=== PATIENT | male | born 1985 | race Caucasian/White ===

== ENCOUNTER 2018-12-20 13:51 | Inpatient (IN) | payer OTHER ==
[2018-12-20 16:26] VITALS: BMI 27.8
--- NOTE | 2018-12-20 18:39 | HP ---
COWS - Scale Resting Pulse: 1= [place] 81-100 Sweatin=Flushed/Facial Moisture Restless Observation: 1= Difficult to Sit Still Pupil Size: 1= Pupils >than Normal Bone or Joint Aches: 1= Mild Discomfort Runny Nose/ Eye Tearin= Nasal Congestion GI Upset > 30mins: 2= Nausea/Diarrhea Tremor Observation: 2= Slight Tremor Visible Yawning Observation: 0= None Anxiety or Irritability: 1=Feels Anxious/Irritable Goose Flesh Skin: 0=Smooth Skin COWS Score: 12 CIWA Score Nausea/Vomitin-Int. Nausea w/Dry Heave Muscle Tremors: 3 Anxiety: 1-Mildly Anxious Agitation: 2 Paroxysmal Sweats: 2 Orientation: 0-Oriented Tacttile Disturbances: 0-None Auditory Disturbances: 0-None Visual Disturbances: 0-None Headache: 2-Mild CIWA-Ar Total Score: 14 - Admission Criteria OASAS Guidelines: Admission for Medically Managed Detox: Requires at least one of the followin. CIWA greater than 12 2. Seizures within the past 24 hours 3. Delirium tremens within the past 24 hours 4. Hallucinations within the past 24 hours 5. Acute intervention needed for co occurring medical disorder 6. Acute intervention needed for co occurring psychiatric disorder 7. Severe withdrawal that cannot be handled at a lower level of care (continued vomiting, continued diarrhea, abnormal vital signs) requiring intravenous medication and/or fluids 8. Admission [facility] Chief Complaint: detox from alcohol and heroin Allergies/Adverse Reactions: Allergies Allergy/AdvReac Type Severity Reaction Status Date / Time No Known Allergies Allergy Verified 12/20/18 16:16 History of Present Illness: Mr. Siegel is a 33yo male with alcohol use disorder, heroin use disorder, depression, bipolar disorder, and hemochromatosis who presents for detox from alcohol and heroin. He was [facility] at the end of [facility] and is currently living in a sober house. He reports feeling anxious about moving in and began drinking and using heroin again. Pt reports detox x 6 and rehab x 8 in the past (last rehab is 2017). Pt reports drinking 12 pk beer over the last 1 -2 months with last use at 12:30am today. Pt reports hx of blackouts but denies seizures. Pt reports drinking for 20 years. Pt also sniffs 1 bundle of heroin daily for the last 2 months. He reports hx of OD x 1. Pt began using 5 years ago. Pt denies tobacco use. Pt reports nasal congestion, UREÑA, abdominal cramping, n/v, and tremors. Pt denies dizziness, chest pain, SOB, diarrhea, tingling, and hallucinations. 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 denies: Diarrhea : reports: No Symptoms Reported Musculoskeletal: denies: Back Pain Integumentary: reports: No Symptoms Reported Neuro: reports: Headache. denies: Dizziness Endocrine: reports: No Symptoms Reported Hematology: reports: No Symptoms Reported Psychiatric: reports: Judgement Intact, Mood/Affect Appropiate, Orientated x3 Patient History - Patient Medical History Hx Anemia: Yes (hemochromatosis) Hx Chronic Obstructive Pulmonary Disease (COPD): No Hx Hypertension: No Hx Seizures: No - Patient Surgical History Past Surgical History: No - Smoking Cessation Smoking history: Never smoked - Substances abused Alcohol Substance route: Oral Frequency: Daily Amount used: 1 - 12 pack (12 ounces) , 1/2 bottle elizabeth harvinder week Age of first use: 11 Date of last use: 12/20/18 Heroin Substance route: Inhalation Frequency: Daily Amount used: 1 bundle/day (10 bags) Age of first use: 28 Date of last use: 12/19/18 Family Disease History - Family Disease History Family Disease History: Other: Father (hx of substance abuse), Mother (hx of substance abuse) Admission Physical Exam BHS - Vital Signs Vital Signs: Vital Signs - 24 hr 12/20/18 16:15 Temperature 97.8 F Pulse Rate 94 H Respiratory 18 Rate Blood Pressure 120/75 - Physical General Appearance: Yes: No Apparent Distress HEENTM: Yes: Hearing grossly Normal, Normocephalic, ELICIA, [place] (area of alopecia base of skull) Respiratory: Yes: Lungs Clear, No Respiratory Distress Neck: Yes: Within Normal Limits Cardiology: Yes: Regular Rhythm, Regular Rate Abdominal: Yes: Normal Bowel Sounds, Non Tender Back: Yes: Within Normal Limits Musculoskeletal: Yes: full range of Motion Neurological: Yes: sap treasury consultant II-XII NML intact, Fully Oriented, Alert, Motor Strength 5/5, Normal Mood/Affect Integumentary: Yes: Within Normal Limits - Diagnostic (1) Alcohol use disorder Current Visit: Yes Status: Chronic (2) Heroin use disorder, mild Current Visit: Yes Status: Chronic (3) Hemochromatosis Current Visit: Yes Status: Chronic Qualifiers: Hemochromatosis type: unspecified Qualified Code(s): E83.119 - Hemochromatosis, unspecified (4) Depression Current Visit: Yes Status: Chronic Qualifiers: Depression Type: unspecified Qualified Code(s): F32.9 - Major depressive disorder, single episode, unspecified (5) Bipolar 1 disorder Current Visit: Yes Status: Chronic Cleared for Admission [facility] - Detox or Rehab [facility] Level of Care: Medically Managed Breathalyzer - Breathalyzer Breathalyzer: 0 Urine Drug Screen - Test Device Lot number: [id number] Expiration date: 09/29/20 - Control Is test valid?: Yes - Results Drug screen NEGATIVE: No Urine drug screen results: MOP-Opiates, OXY-Oxycodone Inpatient Rehab Admission - Rehab Decision to Admit Inpatient rehab admission?: No
[2018-12-20] MEDS ORDERED: METHADONE HCL 10 MG TABLET (FOR DETOX USE ONLY) PO ONE (18:48)
[2018-12-20] MEDS ORDERED: chlordiazePOXIDE HCL 25 MG CAPSULE PO PRN (18:48)
[2018-12-20] MEDS ORDERED: cloNIDine HCL 0.1 MG TABLET PO PRN (18:48)
[2018-12-20] MEDS ORDERED: chlordiazePOXIDE HCL 25 MG CAPSULE PO ONE (18:48)
[2018-12-20] MEDS ORDERED: MELATONIN 5 MG TABLETS PO PRN (19:13)
[2018-12-20] MEDS ORDERED: ACETAMINOPHEN 325 MG TABLET (FP) PO PRN ×2 (19:13)
[2018-12-20] MEDS ORDERED: METHOCARBAMOL 500 MG TABLET PO PRN (19:13)
[2018-12-20] MEDS ORDERED: BISMUTH SUBSALICYLATE 524 MG/30 ML UD PO PRN (19:13)
[2018-12-20] MEDS ORDERED: MAG HYDROX/AL HYDROX/SIMETH 30 ML UNIT-DOSE CUP PO PRN (19:13)
[2018-12-20] MEDS ORDERED: MAGNESIUM CITRATE 300 ML BOTTLE PO PRN (19:13)
[2018-12-20] MEDS ORDERED: MAGNESIUM HYDROX 2400MG/30ML ORAL SUSPENSION 30 ML CUP PO PRN (19:13)
[2018-12-20] MEDS ORDERED: MENTHOL/PHENOL 1 EACH UD MM PRN (19:13)
[2018-12-20] MEDS ORDERED: IBUPROFEN 400 MG TABLET (FP) PO PRN (19:13)
--- NOTE | 2018-12-20 19:59 | PN ---
Teaching Attending Note Name of Resident: Kiana Gan ATTENDING PHYSICIAN STATEMENT I saw and evaluated the patient. I reviewed the resident's note and discussed the case with the resident. I agree with the resident's findings and plan as documented. SUBJECTIVE: 33 yo with hemochromatosis with depression, here for AUD- and heroin detox OBJECTIVE: Vital Signs - 24 hr 12/20/18 16:15 Temperature 97.8 F Pulse Rate 94 H Respiratory 18 Rate Blood Pressure 120/75 alert and oriented tremulous ASSESSMENT AND PLAN: AUD/OUD: pt to start on librium and methadone detox protocols
[2018-12-20] MEDS: chlordiazePOXIDE HCL 25 MG CAPSULE PO SCH (22:07)
[2018-12-20] MEDS: THIAMINE HCL 100 MG TABLET (FP) PO SCH (22:07)
[2018-12-20] MEDS: FLUTICASONE PROP 0.05% 16 GM NASAL SPRAY NS SCH (22:09)
[2018-12-21] MEDS: chlordiazePOXIDE HCL 25 MG CAPSULE PO SCH ×4 (06:05→22:07)
[2018-12-21] MEDS ORDERED: METHADONE HCL 5 MG TABLET (FOR DETOX USE ONLY) ONE (09:36)
[2018-12-21] MEDS ORDERED: METHADONE HCL 10 MG TABLET (FOR DETOX USE ONLY) ONE (09:36)
[2018-12-21] MEDS ORDERED: METHADONE (DETOX) 20 MG, METHADONE (DETOX) 5 MG PO ONE (10:00)
[2018-12-21] MEDS: FLUTICASONE PROP 0.05% 16 GM NASAL SPRAY NS SCH (10:52)
[2018-12-21] MEDS: PRENATAL VITAMINS W/ FOLIC ACID TABLET (FP) PO SCH (10:53)
--- NOTE | 2018-12-21 11:37 | CONSULT ---
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 This is patient's first admission to detox at [facility]. Patient admitted to for alcohol and opiate dependence. Substance Abuse History: - Smoking Cessation. Smoking history: Never smoked. - Substances abused. Alcohol. Substance route: Oral. Frequency: Daily. Amount used: 1 - 12 pack (12 ounces) , 1/2 bottle elizabeth harvinder week. Age of first use: 11. Date of last use: 12/20/18. Heroin. Substance route: Inhalation. Frequency: Daily. Amount used: 1 bundle/day (10 bags). Age of first use: 28. Date of last use: 12/19/18 Medical History: Hemochromatosis Psychiatric History: Patient's first psychiatric contact occured at 28 years of age after he was admitted to [facility] secondary to a suicide attempt by overdose of aspirin. He was diagnosed with Bipolar disorder and treated with psychotropic medications. He reports additional psychiatric hospitalizations at [facility] and [facility]. Mr. Siegel reports history of mood dyregulation. He reports experiencing episiodes of insomnia, euorphia, excessive spending, and severe depression. [facility] and was treated with Wellbutrin 300mg XL + Risperdal 3mg + Irrigon 900mg HS + Cogentin 0.5mg BID. He reports receiving refills of his medication from his Internal medicine physician. At present, patient reports stable mood. Patient denies auditory/visual hallucinations, psychotic symptoms, and suicidal/homicidal ideation. Physical/Sexual Abuse/Trauma History: denies. Mental Status Exam - Mental Status Exam Alert and Oriented to: Time, Place, Person Cognitive Function: Good Patient Appearance: Well Groomed Mood: Euthymic Affect: Mood Congruent Patient Behavior: Cooperative Speech Pattern: Appropriate Voice Loudness: Moderately Soft/Quiet Thought Process: Goal Oriented Thought Disorder: Not Present Hallucinations: Denies Suicidal Ideation: Denies Homicidal Ideation: Denies Insight/Judgement: Poor Sleep: Poorly Appetite: Poor Muscle strength/Tone: Normal Gait/Station: Normal Psychiatric Findings - Problem List ([place] 1, 2,3) (1) Bipolar disorder Current Visit: Yes Status: Chronic (2) Alcohol use disorder Current Visit: Yes Status: Chronic (3) Heroin use disorder, mild Current Visit: Yes Status: Chronic - Initial Treatment Plan Initial Treatment Plan: Psychoeducation provided. Detoxification in progress. [facility] pharmacy contacted. Investor Relations Specialist able to speak to pharmacist. Patient received a prescription of Irrigon 900mg HS + Risperdal 2mg HS (reduced dose as per patient 's request in order to reduce sedation) + Cogentin 0.5mg BID for 30 days on 11/29. Patient received a two week prescription of wellbutrin 300mg XL on 11/28/18 and another 2 week prescription on 12/13. Will order risperdal 3mg + Cogentin 0.5mg BID + Irrigon 600mg HS (reduced dose until lithium labs are posted). BUN + Creatinine levels within normal limits. Irrigon level order for 12/21/18. Benefits and side effects discussed. Verbal consent given.
--- NOTE | 2018-12-21 11:41 | EKG ---
Test Reason : Blood Pressure : / mmHG Vent. Rate : 091 BPM Atrial Rate : 091 BPM P-R Int : 156 ms QRS Dur : 102 ms QT Int : 360 ms P-R-T Axes : 067 039 037 degrees QTc Int : 442 ms NORMAL SINUS RHYTHM NORMAL ECG NO PREVIOUS ECGS AVAILABLE Confirmed by NITISH BOSS, LISA ([id number]) on 12/21/2018 11:41:32 AM Referred By: LARS VANN Confirmed By:LISA TALBERT MD
[2018-12-21 12:22] LABS: ALBUMIN 3.7 g/dl (3.4-5.0); BILIRUBIN,TOTAL 0.6 mg/dL (0.2-1); CALCIUM 8.8 mg/dL (8.5-10.1); CREATININE 1.1 mg/dL (0.55-1.3); POTASSIUM 3.6 mmol/L (3.5-5.1); TOT PROT 6.3 g/dl (6.4-8.2)
[2018-12-21 13:28] LABS: HEMATOCRIT 41.8 % (35.4-49); HEMOGLOBIN 14.5 GM/dL (11.7-16.9); MCH 32.4 pg (25.7-33.7); MCHC 34.7 g/dl (32.0-35.9); MEAN CELL VOLUME 93.3 fl (80-96); MEAN PLT VOLUME 8.4 fl (7.5-11.1); PLATELET COUNT 233 K/MM3 (134-434); RBC 4.48 M/mm3 (4.00-5.60); RDW 13.5 % (11.9-15.9); WHITE BLOOD COUNT 6.8 K/mm3 (4.0-10.0)
--- NOTE | 2018-12-21 14:15 | PN ---
S CIWA - CIWA Score Nausea/Vomitin-Mild Nausea/No Vomiting Muscle Tremors: 4-Moderate,w/Arms Extend Anxiety: 3 Agitation: 2 Paroxysmal Sweats: 1-Minimal Palms Moist Orientation: 0-Oriented Tacttile Disturbances: 0-None Auditory Disturbances: 0-None Visual Disturbances: 0-None Headache: 0-None Present CIWA-Ar Total Score: 11 S COWS - Scale Resting Pulse: 1= [place] 81-100 Sweatin= Chills/Flushing Restless Observation: 0= Sits Still Pupil Size: 0= Normal to Room Light Bone or Joint Aches: 1= Mild Discomfort Runny Nose/ Eye Tearin= Nasal Congestion GI Upset > 30mins: 2= Nausea/Diarrhea Tremor Observation of Outstretched Hands: 2= Slight Tremor Visible Yawning Observation: 1= 1-2x During Session Anxiety or Irritability: 2=Irritable/Anxious Goose Flesh Skin: 0=Smooth Skin COWS Score: 11 S Progress Note (SOAP) Subjective: 33 years old male admitted on 12/20/18 for alcohol and opiate withdrawal sx management doing well with libirum and methadone detox regimen seen by psychiatrist begin lithium treatment for bipolar Objective: 12/21/18 14:18 Vital Signs Temperature 96.7 F L 12/21/18 13:02 Pulse Rate 84 12/21/18 13:02 Respiratory Rate 18 12/21/18 13:02 Blood Pressure 113/81 12/21/18 13:02 O2 Sat by Pulse Oximetry (%) Laboratory Last Values WBC 6.8 K/mm3 (4.0-10.0) 12/21/18 07:30 RBC 4.48 M/mm3 (4.00-5.60) 12/21/18 07:30 Hgb 14.5 GM/dL (11.7-16.9) 12/21/18 07:30 Hct 41.8 % (35.4-49) 12/21/18 07:30 MCV 93.3 fl (80-96) 12/21/18 07:30 MCH 32.4 pg (25.7-33.7) 12/21/18 07:30 MCHC 34.7 g/dl (32.0-35.9) 12/21/18 07:30 RDW 13.5 % (11.9-15.9) 12/21/18 07:30 Plt Count 233 K/MM3 (134-434) 12/21/18 07:30 MPV 8.4 fl (7.5-11.1) 12/21/18 07:30 Sodium 142 mmol/L (136-145) 12/21/18 07:30 Potassium 3.6 mmol/L (3.5-5.1) 12/21/18 07:30 Chloride 102 mmol/L (98-107) 12/21/18 07:30 Carbon Dioxide 31 mmol/L (21-32) 12/21/18 07:30 Anion Gap 9 MMOL/L (8-16) 12/21/18 07:30 BUN 12.0 mg/dL (7-18) 12/21/18 07:30 Creatinine 1.1 mg/dL (0.55-1.3) 12/21/18 07:30 Est GFR (CKD-EPI)AfAm 100.27 12/21/18 07:30 Est GFR (CKD-EPI)NonAf 86.51 12/21/18 07:30 Random Glucose 80 mg/dL (74-106) 12/21/18 07:30 Calcium 8.8 mg/dL (8.5-10.1) 12/21/18 07:30 Total Bilirubin 0.6 mg/dL (0.2-1) 12/21/18 07:30 AST 21 U/L (15-37) 12/21/18 07:30 ALT 49 U/L (13-61) 12/21/18 07:30 Alkaline Phosphatase 72 U/L (45-117) 12/21/18 07:30 Total Protein 6.3 g/dl (6.4-8.2) L 12/21/18 07:30 Albumin 3.7 g/dl (3.4-5.0) 12/21/18 07:30 lab noted Assessment: 12/21/18 14:19 alcohol and opiate withdrawal sx alert oriented x [address] discuss medication assisted treatment program strong recommend the patient adherence to lithium treatment for bipolar Plan: continue librium and methadone detox regimen
[2018-12-21] MEDS ORDERED: risperiDONE 3 MG TABLET PO SCH (22:00)
[2018-12-21] MEDS: THIAMINE HCL 100 MG TABLET (FP) PO SCH (22:06)
[2018-12-21] MEDS: risperiDONE 2 MG TABLET PO SCH (22:06)
[2018-12-21] MEDS: LITHIUM CARBONATE 300 MG CAPSULE (FP) PO SCH (22:06)
[2018-12-21] MEDS: BENZTROPINE MESYLATE 1 MG TABLET (FP) PO SCH (22:07)
[2018-12-22] MEDS: chlordiazePOXIDE HCL 25 MG CAPSULE PO SCH ×4 (05:35→22:56)
[2018-12-22] MEDS ORDERED: METHADONE HCL 10 MG TABLET (FOR DETOX USE ONLY) PO ONE (10:00)
[2018-12-22] MEDS: PRENATAL VITAMINS W/ FOLIC ACID TABLET (FP) PO SCH (10:29)
[2018-12-22] MEDS: BENZTROPINE MESYLATE 1 MG TABLET (FP) PO SCH ×2 (10:29→22:55)
[2018-12-22] MEDS ORDERED: NICOTINE POLACRILEX 2 MG GUM BUC PRN (10:50)
[2018-12-22] MEDS: FLUTICASONE PROP 0.05% 16 GM NASAL SPRAY NS SCH (15:10)
--- NOTE | 2018-12-22 16:34 | PN ---
[facility] CIWA - CIWA Score Nausea/Vomitin-No Nausea/No Vomiting Muscle Tremors: None Anxiety: 4-Mod. Anxious/Guarded Agitation: 3 Paroxysmal Sweats: 3 Orientation: 0-Oriented Tacttile Disturbances: 2-Mild Itch/Numbness/Burn Auditory Disturbances: 0-None Visual Disturbances: 1-Very Mild Sensitivity Headache: 0-None Present CIWA-Ar Total Score: 13 S COWS - Scale Resting Pulse: 1= [place] 81-100 Sweatin= Chills/Flushing Restless Observation: 1= Difficult to Sit Still Pupil Size: 0= Normal to Room Light Bone or Joint Aches: 1= Mild Discomfort Runny Nose/ Eye Tearin= None GI Upset > 30mins: 0= None Tremor Observation of Outstretched Hands: 0= None Yawning Observation: 1= 1-2x During Session Anxiety or Irritability: 2=Irritable/Anxious Goose Flesh Skin: 3=Piloerection COWS Score: 10 S Progress Note (SOAP) Subjective: Fatigue, Anxious, Interrupted Sleep, Body Aches. Objective: PATIENT A & O X 3, OBSERVED AMBULATING ON UNIT UNASSISTED. IN NO ACUTE DISTRESS. 12/22/18 16:37 Vital Signs Temperature 97.1 F L 12/22/18 14:13 Pulse Rate 98 H 12/22/18 14:13 Respiratory Rate 20 12/22/18 14:13 Blood Pressure 133/81 12/22/18 14:13 O2 Sat by Pulse Oximetry (%) Laboratory Tests 12/21/18 12/21/18 12/21/18 07:30 07:30 07:30 WBC 6.8 RBC 4.48 Hgb 14.5 Hct 41.8 MCV 93.3 MCH 32.4 MCHC 34.7 RDW 13.5 Plt Count 233 MPV 8.4 Sodium 142 Potassium 3.6 Chloride 102 Carbon Dioxide 31 Anion Gap 9 BUN 12.0 Creatinine 1.1 Est GFR (CKD-EPI)AfAm 100.27 Est GFR (CKD-EPI)NonAf 86.51 Random Glucose 80 Calcium 8.8 Total Bilirubin 0.6 AST 21 ALT 49 Alkaline Phosphatase 72 Total Protein 6.3 L Albumin 3.7 [place] RPR Titer Nonreactive 12/21/18 12:20 WBC RBC Hgb Hct MCV MCH MCHC RDW Plt Count MPV Sodium Potassium Chloride Carbon Dioxide Anion Gap BUN Creatinine Est GFR (CKD-EPI)AfAm Est GFR (CKD-EPI)NonAf Random Glucose Calcium Total Bilirubin AST ALT Alkaline Phosphatase Total Protein Albumin [place] 0.3 L RPR Titer LABS NOTED. RESULTS OF DETOX ADMISSION QFT /TB TEST PENDING. 12/22/18 16:38 Assessment: 12/22/18 16:38 WITHDRAWAL SYMPTOMS. Plan: CONTINUE DETOX.
--- NOTE | 2018-12-22 17:45 | PN ---
[facility] Progress Note Note: Psychiatric nurse practitioner note: Patient is prescribed lithium 900mg HS + Risperdal 3mg from outside provider. Medications were reduced to lithium 600mg + Risperdal 2mg due to risk of oversedation. Statistical Developer approached patient this afternoon concerning increasing the lithium to 900mg and risperdal 3mg. Patient refused. Stated he preferred the doses remain the same as he felt tired this morning. [place] level 0.3mg. Observation.
[2018-12-22] MEDS: risperiDONE 2 MG TABLET PO SCH (22:40)
[2018-12-22] MEDS: THIAMINE HCL 100 MG TABLET (FP) PO SCH (22:54)
[2018-12-22] MEDS: LITHIUM CARBONATE 300 MG CAPSULE (FP) PO SCH (22:56)
[2018-12-23] MEDS ORDERED: chlordiazePOXIDE HCL 10 MG CAPSULE PO PRN
[2018-12-23] MEDS: chlordiazePOXIDE HCL 10 MG CAPSULE PO SCH ×4 (05:47→22:39)
[2018-12-23] MEDS ORDERED: METHADONE (DETOX) 10 MG, METHADONE (DETOX) 5 MG PO ONE (10:00)
[2018-12-23] MEDS: FLUTICASONE PROP 0.05% 16 GM NASAL SPRAY NS SCH (10:33)
[2018-12-23] MEDS: PRENATAL VITAMINS W/ FOLIC ACID TABLET (FP) PO SCH (10:33)
[2018-12-23] MEDS: BENZTROPINE MESYLATE 1 MG TABLET (FP) PO SCH ×2 (10:34→22:39)
[2018-12-23] MEDS ORDERED: METHADONE HCL 10 MG TABLET (FOR DETOX USE ONLY) ONE (10:35)
[2018-12-23] MEDS ORDERED: METHADONE HCL 5 MG TABLET (FOR DETOX USE ONLY) ONE (10:35)
--- NOTE | 2018-12-23 15:31 | PN ---
S CIWA - CIWA Score Nausea/Vomitin-No Nausea/No Vomiting Muscle Tremors: None Anxiety: 4-Mod. Anxious/Guarded Agitation: 2 Paroxysmal Sweats: No Perspiration Orientation: 2-Disoriented Date<2 days Tacttile Disturbances: 0-None Auditory Disturbances: 0-None Visual Disturbances: 2-Mild Sensitivity Headache: 0-None Present CIWA-Ar Total Score: 10 BHS COWS - Scale Resting Pulse: 0= [place] 80 or Below Sweatin= No chills or Flushing Restless Observation: 1= Difficult to Sit Still Pupil Size: 0= Normal to Room Light Bone or Joint Aches: 2= Severe Diffuse Aches Runny Nose/ Eye Tearin= None GI Upset > 30mins: 0= None Tremor Observation of Outstretched Hands: 0= None Yawning Observation: 2= >3x During Session Anxiety or Irritability: 2=Irritable/Anxious Goose Flesh Skin: 3=Piloerection COWS Score: 10 BHS Progress Note (SOAP) Subjective: Fatigue, Interrupted Sleep, Anxious, Body Aches. Objective: PATIENT A & O X 2 (UNCERTAIN ABOUT CURRENT DAY / DATE). PATIENT OBSERVED AMBULATING ON UNIT UNASSISTED. IN NO ACUTE DISTRESS. 12/23/18 15:30 Vital Signs Temperature 98.1 F 12/23/18 13:01 Pulse Rate 72 12/23/18 13:01 Respiratory Rate 18 12/23/18 13:01 Blood Pressure 103/67 12/23/18 13:01 O2 Sat by Pulse Oximetry (%) Laboratory Tests 12/21/18 12/21/18 12/21/18 07:30 07:30 07:30 WBC 6.8 RBC 4.48 Hgb 14.5 Hct 41.8 MCV 93.3 MCH 32.4 MCHC 34.7 RDW 13.5 Plt Count 233 MPV 8.4 Sodium 142 Potassium 3.6 Chloride 102 Carbon Dioxide 31 Anion Gap 9 BUN 12.0 Creatinine 1.1 Est GFR (CKD-EPI)AfAm 100.27 Est GFR (CKD-EPI)NonAf 86.51 Random Glucose 80 Calcium 8.8 Total Bilirubin 0.6 AST 21 ALT 49 Alkaline Phosphatase 72 Total Protein 6.3 L Albumin 3.7 [place] RPR Titer Nonreactive 12/21/18 12:20 WBC RBC Hgb Hct MCV MCH MCHC RDW Plt Count MPV Sodium Potassium Chloride Carbon Dioxide Anion Gap BUN Creatinine Est GFR (CKD-EPI)AfAm Est GFR (CKD-EPI)NonAf Random Glucose Calcium Total Bilirubin AST ALT Alkaline Phosphatase Total Protein Albumin [place] 0.3 L RPR Titer LABS NOTED. RESULTS OF DETOX ADMISSION QFT /TB TEST PENDING. 12/23/18 15:31 Assessment: 12/23/18 15:31 WITHDRAWAL SYMPTOMS. Plan: CONTINUE DETOX. INCREASE DAILY PO WATER INTAKE.
[2018-12-23] MEDS: THIAMINE HCL 100 MG TABLET (FP) PO SCH (22:39)
[2018-12-23] MEDS: LITHIUM CARBONATE 300 MG CAPSULE (FP) PO SCH (22:39)
[2018-12-23] MEDS: risperiDONE 2 MG TABLET PO SCH (22:39)
[2018-12-24] MEDS: chlordiazePOXIDE HCL 10 MG CAPSULE PO SCH ×2 (05:48→17:36)
[2018-12-24] MEDS ORDERED: METHADONE HCL 10 MG TABLET (FOR DETOX USE ONLY) PO ONE (10:00)
[2018-12-24] MEDS: PRENATAL VITAMINS W/ FOLIC ACID TABLET (FP) PO SCH (10:23)
[2018-12-24] MEDS: FLUTICASONE PROP 0.05% 16 GM NASAL SPRAY NS SCH (10:23)
[2018-12-24] MEDS: BENZTROPINE MESYLATE 1 MG TABLET (FP) PO SCH ×2 (10:23→22:06)
--- NOTE | 2018-12-24 12:34 | PN ---
[facility] CIWA - CIWA Score Nausea/Vomitin-No Nausea/No Vomiting Muscle Tremors: 2 Anxiety: 2 Agitation: 2 Paroxysmal Sweats: 1-Minimal Palms Moist Orientation: 0-Oriented Tacttile Disturbances: 0-None Auditory Disturbances: 0-None Visual Disturbances: 0-None Headache: 0-None Present CIWA-Ar Total Score: 7 BHS COWS - Scale Resting Pulse: 1= [place] 81-100 Sweatin= Chills/Flushing Restless Observation: 0= Sits Still Pupil Size: 0= Normal to Room Light Bone or Joint Aches: 1= Mild Discomfort Runny Nose/ Eye Tearin= None GI Upset > 30mins: 1= Stomach Cramp Tremor Observation of Outstretched Hands: 1= Tremor [place], Not Seen Yawning Observation: 1= 1-2x During Session Anxiety or Irritability: 1=Feels Anxious/Irritable Goose Flesh Skin: 0=Smooth Skin COWS Score: 7 S Progress Note (SOAP) Subjective: 33 years old male admitted on 12/20/18 for acute alcohol benzo and opiate withdrawal sx management doing well with libirum and methadone detox regimen reporting anxious about discharge tomorrow that he prefers [facility] inpatient rehab discuss medication assisted treatment program can begin while in rehab Objective: 12/24/18 12:35 Vital Signs Temperature 97.5 F L 12/24/18 09:26 Pulse Rate 104 H 12/24/18 09:26 Respiratory Rate 20 12/24/18 09:26 Blood Pressure 126/86 12/24/18 09:26 O2 Sat by Pulse Oximetry (%) Laboratory Last Values WBC 6.8 K/mm3 (4.0-10.0) 12/21/18 07:30 RBC 4.48 M/mm3 (4.00-5.60) 12/21/18 07:30 Hgb 14.5 GM/dL (11.7-16.9) 12/21/18 07:30 Hct 41.8 % (35.4-49) 12/21/18 07:30 MCV 93.3 fl (80-96) 12/21/18 07:30 MCH 32.4 pg (25.7-33.7) 12/21/18 07:30 MCHC 34.7 g/dl (32.0-35.9) 12/21/18 07:30 RDW 13.5 % (11.9-15.9) 12/21/18 07:30 Plt Count 233 K/MM3 (134-434) 12/21/18 07:30 MPV 8.4 fl (7.5-11.1) 12/21/18 07:30 Sodium 142 mmol/L (136-145) 12/21/18 07:30 Potassium 3.6 mmol/L (3.5-5.1) 12/21/18 07:30 Chloride 102 mmol/L (98-107) 12/21/18 07:30 Carbon Dioxide 31 mmol/L (21-32) 12/21/18 07:30 Anion Gap 9 MMOL/L (8-16) 12/21/18 07:30 BUN 12.0 mg/dL (7-18) 12/21/18 07:30 Creatinine 1.1 mg/dL (0.55-1.3) 12/21/18 07:30 Est GFR (CKD-EPI)AfAm 100.27 12/21/18 07:30 Est GFR (CKD-EPI)NonAf 86.51 12/21/18 07:30 Random Glucose 80 mg/dL (74-106) 12/21/18 07:30 Calcium 8.8 mg/dL (8.5-10.1) 12/21/18 07:30 Total Bilirubin 0.6 mg/dL (0.2-1) 12/21/18 07:30 AST 21 U/L (15-37) 12/21/18 07:30 ALT 49 U/L (13-61) 12/21/18 07:30 Alkaline Phosphatase 72 U/L (45-117) 12/21/18 07:30 Total Protein 6.3 g/dl (6.4-8.2) L 12/21/18 07:30 Albumin 3.7 g/dl (3.4-5.0) 12/21/18 07:30 Natalia 0.3 MEQ/L (0.6-1.2) L 12/21/18 12:20 RPR Titer Nonreactive (NONREACTIVE) 12/21/18 07:30 lab noted ambulating on hallway anxious about leaving detox emotional assurance given Assessment: 12/24/18 12:36 alcohol benzo opiate withdrawal sx Plan: continue librium and methadone detox regimen
[2018-12-24] MEDS: hydrOXYzine PAMOATE 25 MG CAPSULE (FP) PO PRN ×2 (13:19→22:05)
[2018-12-24] MEDS: LITHIUM CARBONATE 300 MG CAPSULE (FP) PO SCH (22:05)
[2018-12-24] MEDS: THIAMINE HCL 100 MG TABLET (FP) PO SCH (22:06)
[2018-12-24] MEDS: risperiDONE 2 MG TABLET PO SCH (22:06)
[2018-12-25] MEDS ORDERED: chlordiazePOXIDE HCL 10 MG CAPSULE PO ONE (05:00)
[2018-12-25] MEDS ORDERED: METHADONE HCL 5 MG TABLET (FOR DETOX USE ONLY) PO ONE (06:00)
[2018-12-25] MEDS: PRENATAL VITAMINS W/ FOLIC ACID TABLET (FP) PO SCH (10:47)
[2018-12-25] MEDS: FLUTICASONE PROP 0.05% 16 GM NASAL SPRAY NS SCH (10:48)
[2018-12-25] MEDS: BENZTROPINE MESYLATE 1 MG TABLET (FP) PO SCH (10:48)
--- NOTE | 2018-12-25 14:17 | PN ---
Addendum entered and electronically signed by Uri Hollis, RESIDENT 12/25/18 16: 18: Spoke with nurse, patient sleeping. stable right now. Continue to monitor patient. Pending psyche evaluation. Original Note: [facility] Progress Note (SOAP) Subjective: Patient is a 33yo male with alcohol use disorder, heroin use disorder, depression, bipolar disorder, presenting for heroin and alcohol detox. Patient completed detox today but has been reported to have worsening confusion since last night. Patient denies symptoms. says he feels good and wants to go to [place]. He did not want me to examine him because he says many people have been coming in to evaluate him. Unable to examine. He is A/o x 3 but appears confused. He put coffee on his bed and started wiping the bed with it. When asked what he is doing, he said he is cleaning his bed. Patient was also walking to different rooms and says they are his rooms. Recommendations: Psychiatry consult to re-evaluate patient. CMP repeat Vitals continue monitoring patient. consider transfer to ER if patient if confusion persists and no further recommendations from Psychiatry Plan to start rehab tomorrow per Nurse
--- NOTE | 2018-12-25 16:14 | DS ---
[facility] Detox Discharge Summary Admission Date: 12/20/18 Discharge Date: 12/25/18 - History Present History: Alcohol Dependence, Opioid Dependence, Sedative Dependence Additional Comments: 33 years old male admitted on 12/20/18 for alcohol benzo opiate withdrawal sx management doing well with libirum and methadone detox regimen upon discharge date patient became confused and disoriented to time place and person sudden changing of mental status that the patient going to many different rooms as "this is my room" slow speech no drooling hands squeeze equal strength ambulating steady gait information provided to ER Dr Pope to improve opportunity for consultation Dr Hollis recommend psychiatrist evaluation Dr Echols agrees to evaluate the patient proposition: patient may return to rehab 3W when medically cleared nurse informed regarding ER report to Dr Pope Pertinent Past History: psychiatrist recommend one on one for safety and reevaluate tomorrow - Physical Exam Results Vital Signs: Vital Signs Temperature 96.6 F L 12/25/18 13:43 Pulse Rate 97 H 12/25/18 13:43 Respiratory Rate 20 12/25/18 13:43 Blood Pressure 136/78 12/25/18 13:43 O2 Sat by Pulse Oximetry (%) Pertinent Admission Physical Exam Findings: alcohol benzo opiate withdrawal sx Laboratory Last Values WBC 6.8 K/mm3 (4.0-10.0) 12/21/18 07:30 RBC 4.48 M/mm3 (4.00-5.60) 12/21/18 07:30 Hgb 14.5 GM/dL (11.7-16.9) 12/21/18 07:30 Hct 41.8 % (35.4-49) 12/21/18 07:30 MCV 93.3 fl (80-96) 12/21/18 07:30 MCH 32.4 pg (25.7-33.7) 12/21/18 07:30 MCHC 34.7 g/dl (32.0-35.9) 12/21/18 07:30 RDW 13.5 % (11.9-15.9) 12/21/18 07:30 Plt Count 233 K/MM3 (134-434) 12/21/18 07:30 MPV 8.4 fl (7.5-11.1) 12/21/18 07:30 Sodium 142 mmol/L (136-145) 12/21/18 07:30 Potassium 3.6 mmol/L (3.5-5.1) 12/21/18 07:30 Chloride 102 mmol/L (98-107) 12/21/18 07:30 Carbon Dioxide 31 mmol/L (21-32) 12/21/18 07:30 Anion Gap 9 MMOL/L (8-16) 12/21/18 07:30 BUN 12.0 mg/dL (7-18) 12/21/18 07:30 Creatinine 1.1 mg/dL (0.55-1.3) 12/21/18 07:30 Est GFR (CKD-EPI)AfAm 100.27 12/21/18 07:30 Est GFR (CKD-EPI)NonAf 86.51 12/21/18 07:30 Random Glucose 80 mg/dL (74-106) 12/21/18 07:30 Calcium 8.8 mg/dL (8.5-10.1) 12/21/18 07:30 Total Bilirubin 0.6 mg/dL (0.2-1) 12/21/18 07:30 AST 21 U/L (15-37) 12/21/18 07:30 ALT 49 U/L (13-61) 12/21/18 07:30 Alkaline Phosphatase 72 U/L (45-117) 12/21/18 07:30 Ammonia 16.70 umol/L (11-32) 12/25/18 11:00 Total Protein 6.3 g/dl (6.4-8.2) L 12/21/18 07:30 Albumin 3.7 g/dl (3.4-5.0) 12/21/18 07:30 [place] 0.3 MEQ/L (0.6-1.2) L 12/21/18 12:20 RPR Titer Nonreactive (NONREACTIVE) 12/21/18 07:30 lab noted lithium serum level ordered - Treatment Hospital Course: Detox Protocol Followed, Detoxed Safely, Responded well, Rehab Referral Accepted Patient has Accepted a Re[facility] Referral to: [facility] - Medication Discharge Medications: Ambulatory Orders Fluticasone Prop 0.05% Nasal [Flonase -] 1 - 2 spray NS BID #1 spray.pump Loratadine [Claritin] 10 mg PO DAILY #30 tablet 11/24/18 Benztropine Mesylate [Cogentin -] 1 mg PO BID 12/20/18 Bupropion HCl [Wellbutrin Xl] 300 mg PO DAILY 12/20/18 [place] Carbonate [Eskalith -] 900 mg PO HS 12/20/18 Risperidone [Risperdal] 4 mg PO HS 12/20/18 Risperidone [Risperdal] 3 mg PO HS 12/21/18 - Diagnosis (1) Sedative, hypnotic or anxiolytic dependence, uncomplicated Current Visit: Yes Status: Acute (2) Alcohol use disorder Current Visit: Yes Status: Acute (3) Bipolar disorder Current Visit: Yes Status: Suspected Qualifiers: Current bipolar episode type: mixed Current episode severity: unspecified (4) Heroin use disorder, mild Current Visit: Yes Status: Acute (5) Altered mental status Current Visit: Yes Status: Acute Qualifiers: Altered mental status type: disorientation Qualified Code(s): R41.0 - Disorientation, unspecified - AMA Did Patient Leave Against Medical Advice: No
--- NOTE | 2018-12-25 16:33 | PN ---
[facility] Progress Note Note: Psychiatry Attending's note : Called to re-assess this patient. Reason for re-consult : mental confusion. Chart reviewed. Labs seen. Ammonia normal. Noted lithium level = 0.3 (sub-therapeutic). Medications verified with [id number]. Spoke to pharmacist (refills on 11/29/18). Visited patient at bedside. Found asleep. Resting comfortably. Witnessed by nurse. Present at bedside with this inspector automatic typewriter. Examination deferred. In the meantime : risperdal + cogentin Temporarily discontinued. Discussed with nursing staff.
[2018-12-25 18:03] LABS: ALBUMIN 3.8 g/dl (3.4-5.0); BILIRUBIN,TOTAL 1.5 mg/dL (0.2-1); BLOOD UREA NITROGEN 10.9 mg/dL (7-18); CALCIUM 9.1 mg/dL (8.5-10.1); CREATININE 1.1 mg/dL (0.55-1.3); POTASSIUM 4.1 mmol/L (3.5-5.1); TOT PROT 6.6 g/dl (6.4-8.2)
--- NOTE | 2018-12-25 20:33 | PN ---
[facility] Progress Note Note: Psychiatry Attending's note (follow-up) : Contact made with [facility]. Informed that patient is now moved to room # 377. As a safety precaution (being closer to station). As per nurse, patient is wandering around. Requesting discharge AMA. Escalating on the unit. Transition to [facility] was deferred. Due to altered mental status (as per nurse practitioner). Patient CANNOT be allowed to leave premises with such a mental state. Mr Siegel will be at risk of posing a danger to self or others. Intervention : Initiate Constant Observation (1:1) for safety. Contact Security personnel at [facility]. Medical follow-up. Discussed with nursing supervisor kosher dietary service on duty. Also discussed with Mia Adams nurse assigned to the patient.
--- NOTE | 2018-12-25 20:45 | PN ---
[facility] Progress Note Note: Psychiatric nurse practitioner note: Call received by RN stating patient was wandering into other people's room and has requested to leave AMA. Dr. Echols able to speak to nursing staff on 3N before medical underwriter was able to contact the unit. . As per nursing staff, Dr. Echols recommended patient be placed on 1:1 for safety. Due to patient's altered mental status (as per nursing staff) patient should not be allowed to leave facility. If patient were to be transferred to [facility] for Medical follow up, patient would have to go on a 1:1 observation. Dry Cleaner Hand in agreement with Dr. Echols plan.
--- NOTE | 2018-12-25 21:08 | PN ---
[facility] Progress Note Note: Patient was seen and evaluated in bed. He is very confused and reports dizziness and hearing voices. He denies suicidal ideation at this time. 1:1 constant observation for safety initiated. Nursing laboratory supervisor, Mr. Guillen notified Vital Signs Temperature 97 F L 12/25/18 20:57 Pulse Rate 113 H 12/25/18 20:57 Respiratory Rate 18 12/25/18 20:57 Blood Pressure 137/80 12/25/18 20:57 O2 Sat by Pulse Oximetry (%) Action: 1:1 constant observation for safety initiated EKG stat order
[2018-12-25] MEDS: LITHIUM CARBONATE 300 MG CAPSULE (FP) PO SCH (22:30)
[2018-12-26 06:32] VITALS: PULSE 100
[2018-12-26 09:11] VITALS: BP 118/71; TEMP 97.4
--- NOTE | 2018-12-26 09:39 | EKG ---
Test Reason : Blood Pressure : / mmHG Vent. Rate : 105 BPM Atrial Rate : 105 BPM P-R Int : 154 ms QRS Dur : 086 ms QT Int : 326 ms P-R-T Axes : 065 030 040 degrees QTc Int : 430 ms SINUS TACHYCARDIA OTHERWISE NORMAL ECG WHEN COMPARED WITH ECG OF 20-DEC-2018 19:48, NO SIGNIFICANT CHANGE WAS FOUND Confirmed by Ignacio Llanos MD ([id number]) on 12/26/2018 9:39:01 AM Referred By: Confirmed By:Ignacio Llanos MD
--- NOTE | 2018-12-26 10:44 | PN ---
<BernardSunday - Last Filed: 12/26/18 11:10> Psychiatric Progress Note Vital Signs: Vital Signs Period Temp Pulse Resp BP Sys/Nelson Pulse Ox Last 24 Hr 96.6 F-99 F 97-113 16-20 113-137/71-86 Date of Session: 12/26/18 Chief Complaint:: " re evaluation of 1:1 for safety. HPI: Patient admitted to for alcohol dependence comorbid bipolar disorder. ROS: Patient presents as fatigue but is alert and oriented X3. Current Medications: Active Medications Generic Name Dose Route Start Last Admin Trade Name Freq PRN Reason Stop Dose Admin Acetaminophen 650 mg 12/20/18 19:13 12/21/18 22:07 Tylenol - PO 650 mg Q6H PRN Administration PAIN LEVEL 4 - 6 Acetaminophen 650 mg 12/20/18 19:13 Tylenol - PO Q6H PRN FEVER Al Hydroxide/Mg Hydroxide 30 ml 12/20/18 19:13 Mylanta Oral Suspension - PO Q6H PRN DYSPEPSIA Bismuth Subsalicylate 524 mg 12/20/18 19:13 Pepto-Bismol - PO Q1H PRN DIARRHEA Fluticasone Propionate 2 spray 12/20/18 19:30 12/25/18 10:48 Flonase - NS 2 spray DAILY LUX Administration Hydroxyzine Pamoate 25 mg 12/20/18 19:13 12/24/18 22:05 Vistaril - PO 12/26/18 19:14 25 mg Q6H PRN Administration For Anxiety [place] Carbonate 600 mg 12/21/18 22:00 12/25/18 22:30 Eskalith - PO 600 mg HS LUX Administration Magnesium Citrate 300 ml 12/20/18 19:13 Citroma - PO Q48H PRN CONSTIPATION Magnesium Hydroxide 30 ml 12/20/18 19:13 Milk Of Magnesia - PO PRN PRN CONSTIPATION Methocarbamol 500 mg 12/20/18 19:13 Robaxin - PO 12/26/18 19:14 Q6H PRN MUSCLE SPASMS Nicotine Polacrilex 2 mg 12/22/18 10:50 12/24/18 10:25 Nicorette Gum - BUC 2 mg Q2H PRN Administration NICOTINE REPLACEMENT RX Medication(s) Change(s): Not at the moment. Current Side Effect: No Lab tests ordered: No Lab tests reviewed: Yes Provider note:: Patient placed on 1:1 yesterday evening after staff reported that patient was confused and wandering into different rooms. Risperdal 2mg + Cogentin 0.5mg BID + Wellbutrin 300mg was discontinued. Patient remained on lithium 600mg HS. Lithum level on 12/21 was 0.3. Production Hardener able to assess patient bedside this morning. Patient laying in bed awake, mildly fatigue, coherent, alert and oriented X3. Patient does not present with altered mental statues. No irritability noted. Patient denies auditory/visual hallucination, and suicidal/ homicidal ideation. Patient able to explain that he admitted himself to detox after relapsing on alcohol and heroin last week which is what he told film writer upon initial psychiatric consultation. Patient is currently motivated to return to the sober house but states that he needs to get in contact with them. Case discussed with Dr. Echols. Jamil d/c 1:1 observation. Nursing staff informed. Total face to face time:: 25 Mental Status Exam - Mental Status Exam Alert and Oriented to: Time, Place, Person Cognitive Function: Good Patient Appearance: Well Groomed Mood: Euthymic Affect: Mood Congruent Patient Behavior: Fatigued Speech Pattern: Appropriate Voice Loudness: Normal Thought Process: Goal Oriented Thought Disorder: Not Present Hallucinations: Denies Suicidal Ideation: Denies Homicidal Ideation: Denies Insight/Judgement: Fair Sleep: Fair Appetite: Fair Muscle strength/Tone: Normal Gait/Station: Normal Psychiatric Treatment Plan - Problem List (1) Bipolar disorder Current Visit: Yes Qualifiers: Current bipolar episode type: mixed Current episode severity: unspecified (2) Alcohol use disorder Current Visit: Yes (3) Heroin use disorder, mild Current Visit: Yes <Jaya Echols - Last Filed: 12/26/18 11:49> Psychiatric Progress Note Vital Signs: Vital Signs Period Temp Pulse Resp BP Sys/Nelson Pulse Ox Last 24 Hr 96.6 F-99 F 97-113 16-20 113-137/71-86 Current Medications: Active Medications Generic Name Dose Route Start Last Admin Trade Name Freq PRN Reason Stop Dose Admin Acetaminophen 650 mg 12/20/18 19:13 12/21/18 22:07 Tylenol - PO 650 mg Q6H PRN Administration PAIN LEVEL 4 - 6 Acetaminophen 650 mg 12/20/18 19:13 Tylenol - PO Q6H PRN FEVER Al Hydroxide/Mg Hydroxide 30 ml 12/20/18 19:13 Mylanta Oral Suspension - PO Q6H PRN DYSPEPSIA Bismuth Subsalicylate 524 mg 12/20/18 19:13 Pepto-Bismol - PO Q1H PRN DIARRHEA Fluticasone Propionate 2 spray 12/20/18 19:30 12/26/18 10:52 Flonase - NS 2 spray DAILY LUX Administration Hydroxyzine Pamoate 25 mg 12/20/18 19:13 12/24/18 22:05 Vistaril - PO 12/26/18 19:14 25 mg Q6H PRN Administration For Anxiety [place] Carbonate 600 mg 12/21/18 22:00 12/25/18 22:30 Eskalith - PO 600 mg HS LUX Administration Magnesium Citrate 300 ml 12/20/18 19:13 Citroma - PO Q48H PRN CONSTIPATION Magnesium Hydroxide 30 ml 12/20/18 19:13 Milk Of Magnesia - PO PRN PRN CONSTIPATION Methocarbamol 500 mg 12/20/18 19:13 Robaxin - PO 12/26/18 19:14 Q6H PRN MUSCLE SPASMS Nicotine Polacrilex 2 mg 12/22/18 10:50 12/24/18 10:25 Nicorette Gum - BUC 2 mg Q2H PRN Administration NICOTINE REPLACEMENT RX
[2018-12-26] MEDS: FLUTICASONE PROP 0.05% 16 GM NASAL SPRAY NS SCH (10:52)
--- NOTE | 2018-12-26 12:02 | PN ---
[facility] Progress Note Note: Psychiatry Attending's note (follow-up) : Chart reviewed. Case presented by slip cover sewer Juan Ramon Wagner. Patient interviewed. Medical students in attendance. Verbal consent obtained from patient (for student's participation). Mr Siegel is observed as ambulatory, well groomed and cooperative. Friendly and well-mannered. Clear-minded and goal-directed. Fully aware of his whereabouts. Alert, oriented to place and person. Partially oriented to time. Steady, normal gait. Accurate about month, year but not to exact date (believes today to be 12/23/18). Patient verbalizes a fair understanding of his recent cognitive difficulties + erratic behaviors. " I was high on drugs, drinking alcohol and extremely tired when I came to this program." Review of medications orders indicates a protocol of methadone + chlordiazepoxide. This examination attests to a clearing of sensorium concordant with completion of detoxification protocol. Mr Siegel reiterates his willingness to enlist in rehabilitation. Insists on staying on his current medications. Endorses favorable response to bupropion + risperdal + lithium + cogentin. Recently dispensed during his incarceration. Patient reports that he was released on 10/17/18 from long term (incarcerated for one year). Lives in a sober house in [place]. Expresses motivation for sobriety + satisfaction with his current housing arrangement. Gets along with other residents (self-report). Has shown a keen ability to make realistic plans, as evidenced by : - calling the sober supervisor hide house to inform staff of his plan to enter rehabilitation at [facility]. - ensuring that his bed remains secure in the sober house until he gets discharged from [facility]. - making certain that his goal for rehabilitation will not jeopardize his current housing privileges. - inquiring about the feasibility of referral to a local psychiatric OPD clinic (aftercare). - providing accurate information about his medications + longitudinal history of his current illness (bipolar Disorder). Current mental status is consistent with a patient in full command of his faculties, pleasant, conversant and future-oriented. Communicates with a coherent, fluent and goal-directed speech. Normal volume. Relevant. Mood is jovial. Affect : appropriate. Patient is receptive to motivational counseling. Exhibits adequate impulse control and good judgment. Partial insight. Well-rested. Good and reliable historian. Denies hallucinations in all sensory modalities. No delusion elicited. Eager to maintain wellness for future employment. Mr Siegel has consistently denies suicidal/homicidal ideation, intent or plan. Patient is now back to baseline mental status. Stable for [facility]. Plan : - No justification for special observation. One-to-one (1:1) constant observation is discontinued. - Resume wellbutrin Xl 300 mg po daily + lithium 600 mg po hs + risperdal 1 mg po bid + cogentin 0.5 mg po daily. - Side effects/benefits of this regimen : explained to patient. Mr Siegel is made aware of risk for renal dysfunction, abnormal involuntary movements, galactorrhea, gynecomastia, sexual dysfunction, dystonias, dyskinesias, akathisia, neuroleptic malignant syndrome, seizures, weight gain, anticholinergic issues (dry mouth, urinary hesitancy, blurred vision, constipation) and cardiovascular adverse events. Patient is in agreement with this plan of care. Verbal consent received by MD. - Repeat lithium level in two days. If still sub-therapeutic, will titrate lithium to 900 mg po hs (patient's reported usual dose). - Medical clearance (SOFÍA Florian) appreciated. - Stable for transfer to [facility] (rehabilitation unit). - Psychiatry-Liaison to be consulted as needed.
--- NOTE | 2018-12-26 12:32 | DS ---
[facility] Detox Discharge Summary Admission Date: 12/20/18 Discharge Date: 12/26/18 - History Present History: Alcohol Dependence, Opioid Dependence, Sedative Dependence Additional Comments: 33 years old male admitted on 12/20/18 for alcohol benzo and opiate withdrawal sx management doing well with librium and methadone detox regimen upon discharge date patient appeared confused going to other people' room with odd behavior such as using coffee to clean the bed and wrong date of seen by psychiatrist one on one for safety observation patient became alert oriented x 3 knowing that he was living in near [facility] x 2-3 months child welfare caseworker Mr. Gamble his phone number is in his cell with the property reporting that he dose not want to go to rehab yesterday but today he is ready for rehab answer questions appropriately speech clear and coherent steady gait denies headaches no dizziness no hallucinations - Physical Exam Results Vital Signs: Vital Signs Temperature 97.4 F L 12/26/18 09:09 Pulse Rate 100 H 12/26/18 09:09 Respiratory Rate 16 12/26/18 09:09 Blood Pressure 118/71 12/26/18 09:09 O2 Sat by Pulse Oximetry (%) Pertinent Admission Physical Exam Findings: alcohol benzo opiate withdrawal sx Laboratory Last Values WBC 6.8 K/mm3 (4.0-10.0) 12/21/18 07:30 RBC 4.48 M/mm3 (4.00-5.60) 12/21/18 07:30 Hgb 14.5 GM/dL (11.7-16.9) 12/21/18 07:30 Hct 41.8 % (35.4-49) 12/21/18 07:30 MCV 93.3 fl (80-96) 12/21/18 07:30 MCH 32.4 pg (25.7-33.7) 12/21/18 07:30 MCHC 34.7 g/dl (32.0-35.9) 12/21/18 07:30 RDW 13.5 % (11.9-15.9) 12/21/18 07:30 Plt Count 233 K/MM3 (134-434) 12/21/18 07:30 MPV 8.4 fl (7.5-11.1) 12/21/18 07:30 Sodium 140 mmol/L (136-145) 12/25/18 15:00 Potassium 4.1 mmol/L (3.5-5.1) 12/25/18 15:00 Chloride 100 mmol/L (98-107) 12/25/18 15:00 Carbon Dioxide 34 mmol/L (21-32) H 12/25/18 15:00 Anion Gap 6 MMOL/L (8-16) L 12/25/18 15:00 BUN 10.9 mg/dL (7-18) 12/25/18 15:00 Creatinine 1.1 mg/dL (0.55-1.3) 12/25/18 15:00 Est GFR (CKD-EPI)AfAm 100.27 12/25/18 15:00 Est GFR (CKD-EPI)NonAf 86.51 12/25/18 15:00 Random Glucose 122 mg/dL (74-106) H 12/25/18 15:00 Calcium 9.1 mg/dL (8.5-10.1) 12/25/18 15:00 Total Bilirubin 1.5 mg/dL (0.2-1) H 12/25/18 15:00 AST 17 U/L (15-37) 12/25/18 15:00 ALT 31 U/L (13-61) 12/25/18 15:00 Alkaline Phosphatase 69 U/L (45-117) 12/25/18 15:00 Ammonia 16.70 umol/L (11-32) 12/25/18 11:00 Total Protein 6.6 g/dl (6.4-8.2) 12/25/18 15:00 Albumin 3.8 g/dl (3.4-5.0) 12/25/18 15:00 [place] 0.3 MEQ/L (0.6-1.2) L 12/21/18 12:20 RPR Titer Nonreactive (NONREACTIVE) 12/21/18 07:30 TB (QFT) Incubation (.) 12/21/18 07:30 TB Test (QFT) Nil 0.07 IU/mL (.) 12/21/18 07:30 TB Test (QFT) Mitogen >10.00 IU/mL (.) 12/21/18 07:30 TB Test (QFT) Antigen 0.06 IU/mL (.) 12/21/18 07:30 TB Test (QFT) Negative (Negative) 12/21/18 07:30 TB Positive Criteria (.) 12/21/18 07:30 lab noted - Treatment Hospital Course: Detox Protocol Followed, Detoxed Safely, Responded well, Discharged Condition Good, Rehab Referral Accepted Patient has Accepted a Rehab Referral to: [facility] - Medication Discharge Medications: Ambulatory Orders Fluticasone Prop 0.05% Nasal [Flonase -] 1 - 2 spray NS BID #1 spray.pump Loratadine [Claritin] 10 mg PO DAILY #30 tablet 11/24/18 Benztropine Mesylate [Cogentin -] 1 mg PO BID 12/20/18 Bupropion HCl [Wellbutrin Xl] 300 mg PO HS 12/20/18 [place] Carbonate [Eskalith -] 600 mg PO HS 12/20/18 Risperidone [Risperdal] 4 mg PO HS 12/20/18 Risperidone [Risperdal] 3 mg PO HS 12/21/18 - Diagnosis (1) Sedative, hypnotic or anxiolytic dependence, uncomplicated Current Visit: Yes Status: Acute (2) Alcohol use disorder Current Visit: Yes Status: Acute (3) Bipolar disorder Current Visit: Yes Status: Suspected Qualifiers: Current bipolar episode type: mixed Current episode severity: unspecified (4) Heroin use disorder, mild Current Visit: Yes Status: Acute (5) Altered mental status Current Visit: Yes Status: Resolved Qualifiers: Altered mental status type: unspecified Qualified Code(s): R41.82 - Altered mental status, unspecified - AMA Did Patient Leave Against Medical Advice: No CIWA Score - CIWA Score Nausea/Vomitin-No Nausea/No Vomiting Muscle Tremors: 1-None Visible, but [place] Anxiety: 1-Mildly Anxious Agitation: 1-Slight > Activity Paroxysmal Sweats: 1-Minimal Palms Moist Orientation: 0-Oriented Tacttile Disturbances: 0-None Auditory Disturbances: 0-None Visual Disturbances: 0-None Headache: 0-None Present CIWA-Ar Total Score: 4 COWS (PN) - Opiate Withdrawal Resting Pulse: 1= WI 81-100 Sweatin= No chills or Flushing Restless Observation: 0= Sits Still Pupil Size: 0= Normal to Room Light Bone or Joint Aches: 1= Mild Discomfort Runny Nose/ Eye Tearin= Nasal Congestion GI Upset > 30mins: 1= Stomach Cramp Tremor Observation of Outstretched Hands: 0= None Yawning Observation: 0= None Anxiety or Irritability: 1=Feels Anxious/Irritable Goose Flesh Skin: 0=Smooth Skin COWS Score: 5
[2018-12-26] MEDS ORDERED: risperiDONE 0.5 MG TABLET (FP) PO SCH (22:00)
== END 2018-12-26 13:11 | disposition other institution (70) | DRG 773 ==
LOC: YASAS 13:51 → Y3N 19:38
PROVIDERS: ADMIT Surgery; ATTEND Surgery
PROC: HZ2ZZZZ Detoxification Services for Substance Abuse Treatment (ICD-10-PCS; principal; 2018-12-20)
DX: F11.23 Opioid dependence with withdrawal (principal); F10.230 Alcohol dependence with withdrawal, uncomplicated; F13.230 Sedative, hypnotic or anxiolytic dependence with withdrawal, uncomplicated; F31.60 Bipolar disorder, current episode mixed, unspecified; R41.82 Altered mental status, unspecified
CPT/HCPCS: 36415; 80053; 80178; 82140; 85027; 86480; 86593; 93005; 93010; J0735

== ENCOUNTER 2018-12-26 13:25 | Inpatient (IN) | payer OTHER ==
[2018-12-26] MEDS ORDERED: LOPERAMIDE HCL 2 MG CAPSULE PO PRN (15:22)
[2018-12-26] MEDS ORDERED: MAGNESIUM CITRATE 300 ML BOTTLE PO PRN (15:22)
[2018-12-26] MEDS ORDERED: MENTHOL/PHENOL 1 EACH UD MM PRN (15:22)
[2018-12-26] MEDS ORDERED: P-EPHED 60MG/TRIPROLIDI 2.5MG TABLET PO PRN (15:22)
[2018-12-26] MEDS ORDERED: MAG HYDROX/AL HYDROX/SIMETH 30 ML UNIT-DOSE CUP PO PRN (15:22)
[2018-12-26] MEDS ORDERED: IBUPROFEN 400 MG TABLET (FP) PO PRN (15:22)
[2018-12-26] MEDS ORDERED: ACETAMINOPHEN 325 MG TABLET (FP) PO PRN (15:22)
[2018-12-26] MEDS ORDERED: guaiFENesin 200 MG/10 ML 10 ML UNIT-DOSE CUPS PO PRN (15:22)
[2018-12-26] MEDS ORDERED: MAGNESIUM HYDROX 2400MG/30ML ORAL SUSPENSION 30 ML CUP PO PRN (15:22)
--- NOTE | 2018-12-26 15:22 | HP ---
[facility] Rehab Assess/Revision - Admission History Admitted to Rehab from: [facility] Date of Admission to Rehab: 12/25/18 - Findings Detox History & Physical reviewed: Yes Concur with findings: Yes Comments/Additional Findings: transferred from detox to rehab admission as per protocol Inpatient Rehab Admission - Rehab Decision to Admit Inpatient rehab admission?: Yes - Initial Determination Are CD services needed?: Yes Free of communicable disease: Yes Not in need of hospitalization: Yes - Rehab Admission Criteria Previous failed treatment: Yes Poor recovery environment: Yes Comorbidities: Yes Lacks judgement: No Patient is meeting Inpatient Rehab admission criteria:: Yes
[2018-12-26] MEDS: risperiDONE 0.5 MG TABLET (FP) PO SCH (20:59)
[2018-12-26] MEDS: THIAMINE HCL 100 MG TABLET (FP) PO SCH (20:59)
[2018-12-26] MEDS: LITHIUM CARBONATE 300 MG CAPSULE (FP) PO SCH (20:59)
[2018-12-26] MEDS: MELATONIN 5 MG TABLETS PO PRN (20:59)
[2018-12-27] MEDS: risperiDONE 0.5 MG TABLET (FP) PO SCH (10:27)
[2018-12-27] MEDS: PRENATAL VITAMINS W/ FOLIC ACID TABLET (FP) PO SCH (10:27)
[2018-12-27] MEDS ORDERED: NICOTINE POLACRILEX 2 MG GUM BUC ONE (10:36)
[2018-12-27] MEDS ORDERED: PNEUMOCOCCAL 23 VACCINE 0.5 ML VIAL IM ONE (12:00)
--- NOTE | 2018-12-27 13:36 | CONSULT ---
[facility] Psychiatric Consult - Data Date of interview: 12/27/18 Admission source: Transfer from [address] [place] [address]. Identifying data: First admission to [facility] for this 33 y/o male who completed detoxification at [address] [place] [address] and enrolled in rehabilitation for preservation of sobriety + management of co-morbidities (substance use disorder : alcohol/heroin + bipolar disorder). 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 Substance Abuse History: Discussed in this session. Confirmed by patient. Details in current [facility] report as folows : Smoking history: Never smoked. Substances abused. Alcohol. Substance route: Oral. Frequency: Daily. Amount used: 1 - 12 pack (12 ounces) , 1/2 bottle elizabeth harvinder week. Age of first use: 11. Date of last use: 12/20/18. Heroin. Substance route: Inhalation. Frequency: Daily. Amount used: 1 bundle/day (10 bags). Age of first use: 28. Date of last use: 12/19/18 Medical History: History of hemochromatosis. Psychiatric History: First contact with the mental health system occurred five years ago after a serious suicide attempt (overdose with 50 tablets of seroquel) . Precipitants : divorce and loss of custody of his daughter (left with child's mother). Patient was admitted to [facility] in [facility] (went to a medically-induced coma as per self-report). Mr Siegel got diagnosed with Bipolar Disorder. He endorses additional psychiatric hospitalizations at the [facility]. Patient admits to chronic non-adherence to [facility] care. He, however, re-enlisted in psychiatric care during his recent incarceration (served a one-year sentence; released in September 2018). Patient was reportedly managed on a regimen of wellbutrin XL 300 mg/day + risperdal 3 mg/hs + lithium 900 mg/hs + cogentin 0.5 mg/bid. His most recent refills were issued by his primary care physician. Physical/Sexual Abuse/Trauma History: Patient denies history of abuse. Additional Comment: Urine drug screen results: MOP-Opiates, OXY-Oxycodone. Noted. Mental Status Exam - Mental Status Exam Alert and Oriented to: Time, Place, Person Cognitive Function: Good Patient Appearance: Well Groomed Mood: Hopeful, Euthymic Affect: Appropriate, Normal Range Patient Behavior: Cooperative Speech Pattern: Clear, Appropriate Voice Loudness: Normal Thought Process: Goal Oriented Thought Disorder: Not Present Hallucinations: Denies Suicidal Ideation: Denies Homicidal Ideation: Denies Insight/Judgement: Fair Sleep: Well Appetite: Good Muscle strength/Tone: Normal Gait/Station: Normal Psychiatric Findings - Problem List ([place] 1, 2,3) (1) Alcohol use disorder Current Visit: Yes Status: Chronic (2) Heroin use disorder, mild Current Visit: Yes Status: Chronic (3) Bipolar disorder Current Visit: Yes Status: Chronic Qualifiers: Current bipolar episode type: mixed Current episode severity: unspecified Comment: By history. - Initial Treatment Plan Initial Treatment Plan: Continue psychoeducation. Support. Address patient's concern about housing issues (social work team to coordinate contact between patient and the management office at [facility]). AA/NA meetings. Relapse prevention teachings. Psychotherapy. Groups. Motivational counseling. [place] level (repeat) = 0.5 on 12/26/18. Will follow every five days. Resumed : wellbutrin XL 300 mg po daily + risperdal 1 mg po bid + cogentin 0.5 mg po bid + lithium 600 mg po hs. Side effects/benefits of each medication of this regimen : discussed with the patient. Mr Siegel continues to be in agreement with this plan of care. Gave verbal consent to MD. Lowery.
[2018-12-27] MEDS: BENZTROPINE MESYLATE 1 MG TABLET (FP) PO SCH (21:47)
[2018-12-27] MEDS: risperiDONE 1 MG TABLET (FP) PO SCH (21:47)
[2018-12-27] MEDS: LITHIUM CARBONATE 300 MG CAPSULE (FP) PO SCH (21:47)
[2018-12-27] MEDS: THIAMINE HCL 100 MG TABLET (FP) PO SCH (21:47)
[2018-12-27] MEDS: NICOTINE POLACRILEX 2 MG GUM BC PRN (21:48)
[2018-12-28] MEDS: BENZTROPINE MESYLATE 1 MG TABLET (FP) PO SCH ×2 (10:22→21:26)
[2018-12-28] MEDS: risperiDONE 1 MG TABLET (FP) PO SCH (10:23)
[2018-12-28] MEDS: PRENATAL VITAMINS W/ FOLIC ACID TABLET (FP) PO SCH (10:24)
--- NOTE | 2018-12-28 12:08 | PN ---
S Progress Note Note: Pt c/o left foot pain and "feeling of swelling". Reports pain when wiggling foot. Denies any previous truama to foot. Saw pt laying in bed. Foot Exam:left foot slight limited active range of motion. No redness or swelling or cyanosis to both feet. . Right foot wnl-no complaint. Vital Signs 12/28/18 07:52 Temperature 97.7 F Pulse Rate 102 H Respiratory 18 Rate Blood Pressure 132/80 A/P Pain left foot D/w patient can take Motrin 400 mg po q6h prn as directed. May increase to Motrin 600 mg po q6h prn if not effective. Analgesic balm apply to left foot bid Pt agrees to poc.
--- NOTE | 2018-12-28 13:43 | PN ---
[facility] Progress Note Note: Psychiatric nurse practitioner note: Patient coherent, alert and oriented X3. Patient requesting medication adjustments to wellbutrin and risperdal. Patient is currently prescribed wellbutrin 300mg Xl day @1000 + risperdal 1mg BID. Patient requesting wellbutrin be ordered at an earlier time and risperdal 1mg BID be changed to risperdal 2mg HS. Will discontinue Wellbutrin 300mg XL daily and risperdal 1mg BID. Will order Wellbutrin 300mg XL @7:30am and Risperdal 2mg HS.
[2018-12-28] MEDS: METHYL SALICYLATE/MENTHOL OINT 30 GM TUBE TP SCH ×2 (15:06→21:46)
[2018-12-28] MEDS: risperiDONE 2 MG TABLET PO SCH (21:26)
[2018-12-28] MEDS: LITHIUM CARBONATE 300 MG CAPSULE (FP) PO SCH (21:26)
[2018-12-28] MEDS: THIAMINE HCL 100 MG TABLET (FP) PO SCH (21:26)
[2018-12-29] MEDS: METHYL SALICYLATE/MENTHOL OINT 30 GM TUBE TP SCH ×2 (10:58→21:37)
[2018-12-29] MEDS: BENZTROPINE MESYLATE 1 MG TABLET (FP) PO SCH ×2 (10:59→21:37)
[2018-12-29] MEDS: PRENATAL VITAMINS W/ FOLIC ACID TABLET (FP) PO SCH (10:59)
[2018-12-29] MEDS: NICOTINE POLACRILEX 2 MG GUM BC PRN (14:21)
[2018-12-29] MEDS: LITHIUM CARBONATE 300 MG CAPSULE (FP) PO SCH (21:36)
[2018-12-29] MEDS: risperiDONE 2 MG TABLET PO SCH (21:37)
[2018-12-29] MEDS: THIAMINE HCL 100 MG TABLET (FP) PO SCH (21:37)
[2018-12-30] MEDS: NICOTINE POLACRILEX 2 MG GUM BC PRN ×3 (08:56→21:45)
[2018-12-30] MEDS: PRENATAL VITAMINS W/ FOLIC ACID TABLET (FP) PO SCH (10:14)
[2018-12-30] MEDS: BENZTROPINE MESYLATE 1 MG TABLET (FP) PO SCH ×2 (10:15→21:44)
[2018-12-30] MEDS: METHYL SALICYLATE/MENTHOL OINT 30 GM TUBE TP SCH ×2 (10:15→21:44)
[2018-12-30] MEDS: FLUTICASONE PROP 0.05% 16 GM NASAL SPRAY NS SCH ×2 (11:08→21:44)
[2018-12-30] MEDS: risperiDONE 2 MG TABLET PO SCH (21:44)
[2018-12-30] MEDS: LITHIUM CARBONATE 300 MG CAPSULE (FP) PO SCH (21:44)
[2018-12-30] MEDS: THIAMINE HCL 100 MG TABLET (FP) PO SCH (21:44)
[2018-12-31] MEDS: METHYL SALICYLATE/MENTHOL OINT 30 GM TUBE TP SCH ×2 (10:29→21:40)
[2018-12-31] MEDS: FLUTICASONE PROP 0.05% 16 GM NASAL SPRAY NS SCH ×2 (10:29→21:40)
[2018-12-31] MEDS: PRENATAL VITAMINS W/ FOLIC ACID TABLET (FP) PO SCH (10:29)
[2018-12-31] MEDS: BENZTROPINE MESYLATE 1 MG TABLET (FP) PO SCH ×2 (10:29→21:40)
[2018-12-31] MEDS: NICOTINE POLACRILEX 2 MG GUM BC PRN ×3 (10:29→21:40)
[2018-12-31] MEDS: THIAMINE HCL 100 MG TABLET (FP) PO SCH (21:40)
[2018-12-31] MEDS: LITHIUM CARBONATE 300 MG CAPSULE (FP) PO SCH (21:40)
[2018-12-31] MEDS: risperiDONE 2 MG TABLET PO SCH (21:40)
[2019-01-01] MEDS: NICOTINE POLACRILEX 2 MG GUM BC PRN ×3 (06:32→20:22)
[2019-01-01] MEDS: METHYL SALICYLATE/MENTHOL OINT 30 GM TUBE TP SCH ×2 (10:48→21:43)
[2019-01-01] MEDS: BENZTROPINE MESYLATE 1 MG TABLET (FP) PO SCH ×2 (10:49→21:43)
[2019-01-01] MEDS: PRENATAL VITAMINS W/ FOLIC ACID TABLET (FP) PO SCH (10:49)
[2019-01-01] MEDS: FLUTICASONE PROP 0.05% 16 GM NASAL SPRAY NS SCH ×2 (10:50→21:44)
--- NOTE | 2019-01-01 15:18 | PN ---
Psychiatric Progress Note Vital Signs: Vital Signs Period Temp Pulse Resp BP Sys/Nelson Pulse Ox Last 24 Hr 98.0 F 86 16-18 122/78 Date of Session: 01/01/19 Chief Complaint:: " I need my 900 mg of lithium at night." HPI: No new issues. Patient is simply requesting to get back on his usual dose of lithium (900 mg po hs). Has reportedly been on that dose for past three years. Mr Siegel wishes to be given that medication at 8 pm. Hospital course is benign. Patient doing well. ROS: Unremarkable. Current Medications: Active Medications Generic Name Dose Route Start Last Admin Trade Name Freq PRN Reason Stop Dose Admin Acetaminophen 650 mg 12/26/18 15:22 Tylenol - PO Q4H PRN FEVER Al Hydroxide/Mg Hydroxide 30 ml 12/26/18 15:22 12/29/18 15:41 Mylanta Oral Suspension - PO 30 ml Q6H PRN Administration DYSPEPSIA Benztropine Mesylate 0.5 mg 12/27/18 22:00 01/01/19 10:49 Cogentin - PO 0.5 mg BID LUX Administration Bupropion HCl 300 mg 12/29/18 07:30 01/01/19 06:30 Wellbutrin Xl - PO 300 mg DAILY@0730 LUX Administration Eucalyptus/Menthol/Phenol/Sorbitol 1 each 12/26/18 15:22 Cepastat Lozenge - MM Q4H PRN SORE THROAT Fluticasone Propionate 1 spray 12/30/18 10:45 01/01/19 10:50 Flonase - NS 1 spray BID LUX Administration Guaifenesin 10 ml 12/26/18 15:22 Robitussin - PO Q6H PRN COUGH Ibuprofen 400 mg 12/26/18 15:22 Motrin - PO Q6H PRN Pain level 4-6 [place] Carbonate 600 mg 12/26/18 22:00 12/31/18 21:40 Eskalith - PO 600 mg HS LUX Administration Loperamide HCl 4 mg 12/26/18 15:22 Imodium - PO Q6H PRN DIARRHEA Magnesium Citrate 300 ml 12/26/18 15:22 Citroma - PO Q48H PRN CONSTIPATION Magnesium Hydroxide 30 ml 12/26/18 15:22 Milk Of Magnesia - PO DAILY PRN CONSTIPATION Melatonin 5 mg 12/26/18 22:00 12/26/18 20:59 Melatonin PO 5 mg HS PRN Administration INSOMNIA Methyl Salicylate 1 applic 12/28/18 12:15 01/01/19 10:48 Denny-Oconnell - TP Not Given BID LUX Nicotine Polacrilex 2 mg 12/26/18 15:22 01/01/19 06:32 Nicorette Gum - BC 2 mg Q2H PRN Administration NICOTINE REPLACEMENT RX Multivit/Folic Acid/Iron 1 tab 12/27/18 10:00 01/01/19 10:49 Vitamins (Sjr) - PO 1 tab DAILY LUX Administration Pseudoephedrine/Triprolidine 1 combo 12/26/18 15:22 Actifed - PO TID PRN NASAL CONGESTION Risperidone 2 mg 12/28/18 22:00 12/31/18 21:40 Risperdal - PO 2 mg HS LUX Administration Thiamine HCl 100 mg 12/26/18 22:00 12/31/18 21:40 Vitamin B1 - PO 100 mg HS LUX Administration Medication(s) Change(s): Struble dose is increased to 900 mg po hs (from 600 mg) . Side effects/benefits re-discussed with the patient. Mr Siegel is made aware of risk of renal dysfunction, hypothyrodism, alopecia areata, tremors, weight gain. He reports a history of good response to that medication. No history of adverse effects. Current Side Effect: No Lab tests ordered: No Lab tests reviewed: Yes Provider note:: Request for follow-up : aknowledged. Chart reviewed. dragger Juan Ramon Wagner's notes : appreciated. Patient is interviewed at bedside. Noted as alert, fully oriented and pleasant on approach. Feels fine. Denies any complaints. Expresses wish to be on 900 mg of lithium. No report of adverse effects. [place] level (repeat) : requested. Will follow. Stable mental status. Total face to face time:: 35 Mental Status Exam - Mental Status Exam Alert and Oriented to: Time, Place, Person Cognitive Function: Good Patient Appearance: Well Groomed Mood: Withdrawn, Hopeful Affect: Appropriate, Normal Range Patient Behavior: Appropriate, Cooperative Speech Pattern: Clear Voice Loudness: Normal Thought Process: Intact Thought Disorder: Not Present Hallucinations: Denies Suicidal Ideation: Denies Homicidal Ideation: Denies Insight/Judgement: Good Sleep: Well Appetite: Good Gait/Station: Normal Psychiatric Treatment Plan - Problem List (1) Alcohol use disorder Current Visit: Yes Comment: . (2) Heroin use disorder, mild Current Visit: Yes Comment: . (3) Bipolar disorder Current Visit: Yes Qualifiers: Current bipolar episode type: mixed Current episode severity: unspecified Comment: .By history.
[2019-01-01] MEDS ORDERED: LITHIUM CARBONATE 300 MG CAPSULE (FP) PO SCH (20:00)
[2019-01-01] MEDS: risperiDONE 2 MG TABLET PO SCH (21:42)
[2019-01-01] MEDS: THIAMINE HCL 100 MG TABLET (FP) PO SCH (21:42)
[2019-01-01] MEDS: LITHIUM CARBONATE 300 MG CAPSULE (FP) PO SCH (21:42)
[2019-01-02] MEDS: PRENATAL VITAMINS W/ FOLIC ACID TABLET (FP) PO SCH (10:42)
[2019-01-02] MEDS: FLUTICASONE PROP 0.05% 16 GM NASAL SPRAY NS SCH ×2 (10:42→21:42)
[2019-01-02] MEDS: BENZTROPINE MESYLATE 1 MG TABLET (FP) PO SCH ×2 (10:44→21:41)
[2019-01-02] MEDS: METHYL SALICYLATE/MENTHOL OINT 30 GM TUBE TP SCH ×2 (10:45→21:41)
[2019-01-02] MEDS: NICOTINE POLACRILEX 2 MG GUM BC PRN ×3 (10:45→21:42)
[2019-01-02] MEDS: LITHIUM CARBONATE 300 MG CAPSULE (FP) PO SCH (21:40)
[2019-01-02] MEDS: THIAMINE HCL 100 MG TABLET (FP) PO SCH (21:40)
[2019-01-02] MEDS: risperiDONE 2 MG TABLET PO SCH (21:40)
[2019-01-03] MEDS: NICOTINE POLACRILEX 2 MG GUM BC PRN ×3 (08:54→21:58)
[2019-01-03] MEDS: BENZTROPINE MESYLATE 1 MG TABLET (FP) PO SCH ×2 (11:05→21:58)
[2019-01-03] MEDS: PRENATAL VITAMINS W/ FOLIC ACID TABLET (FP) PO SCH (11:05)
[2019-01-03] MEDS: FLUTICASONE PROP 0.05% 16 GM NASAL SPRAY NS SCH ×3 (12:24→21:58)
[2019-01-03] MEDS: METHYL SALICYLATE/MENTHOL OINT 30 GM TUBE TP SCH ×2 (12:24→21:58)
[2019-01-03] MEDS: THIAMINE HCL 100 MG TABLET (FP) PO SCH (21:57)
[2019-01-03] MEDS: LITHIUM CARBONATE 300 MG CAPSULE (FP) PO SCH (21:57)
[2019-01-03] MEDS: risperiDONE 2 MG TABLET PO SCH (21:57)
[2019-01-04] MEDS: BENZTROPINE MESYLATE 1 MG TABLET (FP) PO SCH ×2 (10:46→21:09)
[2019-01-04] MEDS: PRENATAL VITAMINS W/ FOLIC ACID TABLET (FP) PO SCH (10:47)
[2019-01-04] MEDS: FLUTICASONE PROP 0.05% 16 GM NASAL SPRAY NS SCH ×2 (10:47→21:09)
[2019-01-04] MEDS: METHYL SALICYLATE/MENTHOL OINT 30 GM TUBE TP SCH ×2 (10:47→21:08)
[2019-01-04] MEDS: NICOTINE POLACRILEX 2 MG GUM BC PRN (15:06)
[2019-01-04] MEDS: LITHIUM CARBONATE 300 MG CAPSULE (FP) PO SCH (21:08)
[2019-01-04] MEDS: risperiDONE 2 MG TABLET PO SCH (21:09)
[2019-01-04] MEDS: MELATONIN 5 MG TABLETS PO PRN (21:10)
[2019-01-04] MEDS: THIAMINE HCL 100 MG TABLET (FP) PO SCH (21:10)
[2019-01-05] MEDS: NICOTINE POLACRILEX 2 MG GUM BC PRN ×3 (06:44→17:01)
[2019-01-05] MEDS: BENZTROPINE MESYLATE 1 MG TABLET (FP) PO SCH ×2 (10:10→22:15)
[2019-01-05] MEDS: PRENATAL VITAMINS W/ FOLIC ACID TABLET (FP) PO SCH (10:10)
[2019-01-05] MEDS: FLUTICASONE PROP 0.05% 16 GM NASAL SPRAY NS SCH ×2 (10:11→22:15)
[2019-01-05] MEDS: METHYL SALICYLATE/MENTHOL OINT 30 GM TUBE TP SCH ×2 (10:11→22:15)
--- NOTE | 2019-01-05 14:14 | PN ---
[facility] Progress Note Note: Psychiatry Attending's note (follow-up) : Chart reviewed. [place] level = 0.8 (01/02/19). Therapeutic. No report of adverse effects. Benign hospital course. Normal vitals. Continue risperdal + lithium + wellbutrin as ordered. Repeat lithium level on 01/07/19. Will follow.
[2019-01-05] MEDS: LITHIUM CARBONATE 300 MG CAPSULE (FP) PO SCH (22:16)
[2019-01-05] MEDS: risperiDONE 2 MG TABLET PO SCH (22:16)
[2019-01-05] MEDS: THIAMINE HCL 100 MG TABLET (FP) PO SCH (22:16)
[2019-01-06] MEDS: NICOTINE POLACRILEX 2 MG GUM BC PRN ×4 (07:02→20:38)
[2019-01-06] MEDS: PRENATAL VITAMINS W/ FOLIC ACID TABLET (FP) PO SCH (10:33)
[2019-01-06] MEDS: BENZTROPINE MESYLATE 1 MG TABLET (FP) PO SCH ×2 (10:33→21:50)
[2019-01-06] MEDS: FLUTICASONE PROP 0.05% 16 GM NASAL SPRAY NS SCH ×2 (10:34→22:00)
[2019-01-06] MEDS: METHYL SALICYLATE/MENTHOL OINT 30 GM TUBE TP SCH ×2 (10:35→21:50)
[2019-01-06] MEDS: LITHIUM CARBONATE 300 MG CAPSULE (FP) PO SCH (21:49)
[2019-01-06] MEDS: THIAMINE HCL 100 MG TABLET (FP) PO SCH (21:50)
[2019-01-06] MEDS: risperiDONE 2 MG TABLET PO SCH (21:50)
[2019-01-07] MEDS: NICOTINE POLACRILEX 2 MG GUM BC PRN ×5 (06:35→21:55)
[2019-01-07 07:32] VITALS: BP 116/77; PULSE 71; TEMP 97.5
[2019-01-07] MEDS: PRENATAL VITAMINS W/ FOLIC ACID TABLET (FP) PO SCH (10:50)
[2019-01-07] MEDS: FLUTICASONE PROP 0.05% 16 GM NASAL SPRAY NS SCH ×2 (10:51→21:54)
[2019-01-07] MEDS: BENZTROPINE MESYLATE 1 MG TABLET (FP) PO SCH ×2 (10:51→21:55)
[2019-01-07] MEDS: METHYL SALICYLATE/MENTHOL OINT 30 GM TUBE TP SCH ×2 (10:52→21:55)
[2019-01-07] MEDS: risperiDONE 2 MG TABLET PO SCH (21:54)
[2019-01-07] MEDS: THIAMINE HCL 100 MG TABLET (FP) PO SCH (21:54)
[2019-01-07] MEDS: LITHIUM CARBONATE 300 MG CAPSULE (FP) PO SCH (21:54)
[2019-01-08] MEDS: NICOTINE POLACRILEX 2 MG GUM BC PRN ×2 (07:44→11:28)
--- NOTE | 2019-01-08 11:19 | DS ---
[facility] Rehab Discharge Summary - [facility] Rehab Discharge Summary Admission Date: 12/26/18 Discharge Date: 01/08/19 - History Present History: Alcohol dependence, Opioid dependence Pertinent Past History: Pt was admitted to detox for heroin use on 12/20. 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 Pt has hemochromatosis- pt does not have a PCP, but advised pt on getting one. Pt states he does not need any medications as he has enough at home. Pt will be living in a sober house and will be going for intensive outpt recovery services at [facility]. Admission history on 12/20: "Mr. Siegel is a 33yo male with alcohol use disorder, heroin use disorder, depression, bipolar disorder, and hemochromatosis who presents for detox from alcohol and heroin. [facility] and is currently living in a sober house. He reports feeling anxious about moving in and began drinking and using heroin again. Pt reports detox x 6 and rehab x 8 in the past (last rehab is 2016). Pt reports drinking 12 pk beer over the last 1-2 months with last use at 12:30am today. Pt reports hx of blackouts but denies seizures. Pt reports drinking for 20 years. Pt also sniffs 1 bundle of heroin daily for the last 2 months. He reports hx of OD x 1. Pt began using 5 years ago. Pt denies tobacco use. Pt reports nasal congestion, UREÑA, abdominal cramping, n/v, and tremors. Pt denies dizziness, chest pain, SOB, diarrhea, tingling, and hallucinations. " - Discharge Physical Exam Vital Signs: Vital Signs Temperature 97.5 F L 01/07/19 07:31 Pulse Rate 71 01/07/19 07:31 Respiratory Rate 18 01/08/19 03:30 Blood Pressure 116/77 01/07/19 07:31 O2 Sat by Pulse Oximetry (%) - Treatment Discharge Condition: Discharge condition good - Medication Discharge Medications: Ambulatory Orders Fluticasone Prop 0.05% Nasal [Flonase -] 1 - 2 spray NS BID #1 spray.pump Loratadine [Claritin] 10 mg PO DAILY #30 tablet 11/24/18 Benztropine Mesylate [Cogentin -] 1 mg PO BID 12/20/18 Bupropion HCl [Wellbutrin Xl] 300 mg PO HS 12/20/18 [place] Carbonate [Eskalith -] 600 mg PO HS 12/20/18 Risperidone [Risperdal] 4 mg PO HS 12/20/18 Risperidone [Risperdal] 3 mg PO HS 12/21/18 - Discharge Instructions Diet, activity, other medical instructions: Diet: whole foods diet Activity: Other medical instructions: - Diagnosis (1) Alcohol use disorder Current Visit: Yes Status: Chronic (2) Heroin use disorder, mild Current Visit: Yes Status: Chronic - Follow-up Referral Minutes to complete discharge: 30
[2019-01-08] MEDS: BENZTROPINE MESYLATE 1 MG TABLET (FP) PO SCH (11:23)
[2019-01-08] MEDS: PRENATAL VITAMINS W/ FOLIC ACID TABLET (FP) PO SCH (11:23)
[2019-01-08] MEDS: FLUTICASONE PROP 0.05% 16 GM NASAL SPRAY NS SCH (11:23)
[2019-01-08] MEDS: METHYL SALICYLATE/MENTHOL OINT 30 GM TUBE TP SCH (11:23)
--- NOTE | 2019-01-08 12:19 | PN ---
[facility] Progress Note Note: Psychiatry Attending's note : Called by [facility] Tejada for scripts. Patient has decided to leave the program. Risperdal 2 mg po hs Tab # 30 Cogentin 0.5 mg po daily tab # 30 Wellbutrin XL 300 mg po daily tab # 30 Scripts sent electronically to [facility]. [place] level (repeat/drawn on 12/07/18) : pending. Script for lithium : temporarily held (until level known). Discussed with nurse.
== END 2019-01-08 12:45 | disposition home or self-care (01) | DRG 772 ==
LOC: YASAS 13:25 → Y5N 13:26
PROVIDERS: ADMIT Neuromusculoskeletal Medicine & OMM; ATTEND Neuromusculoskeletal Medicine & OMM
PROC: HZ42ZZZ Group Counseling for Substance Abuse Treatment, Cognitive-Behavioral (ICD-10-PCS; principal; 2018-12-26)
DX: F11.20 Opioid dependence, uncomplicated (principal); F10.20 Alcohol dependence, uncomplicated; F31.9 Bipolar disorder, unspecified; M79.672 Pain in left foot
CPT/HCPCS: 36415; 80178; J2794

== ENCOUNTER 2023-10-19 07:41 | Emergency (ER) | payer OTHER ==
[2023-10-19 07:56] VITALS: BP 130/78; PULSE 79; RESP 18; TEMP 98; BMI 30.5
[2023-10-19] MEDS ORDERED: ACETAMINOPHEN 325 MG TABLET (FP) ONE (08:33)
[2023-10-19] MEDS: ACETAMINOPHEN 500 MG TABLET (FP) PO ONE (08:52)
[2023-10-19 09:00] LABS: EOS % 2.7 % (0-4.5); HEMATOCRIT 37.8 % (35.4-49); HEMOGLOBIN 13.2 GM/dL (11.7-16.9); LYMPH % 33.2 % (8-40); MCH 33.8 pg (25.7-33.7); MEAN CELL VOLUME 96.7 fl (80-96); MEAN PLT VOLUME 7.6 fl (7.5-11.1); MONO % 7.8 % (3.8-10.2); NEUT % 55.3 % (42.8-82.8); PLATELET COUNT 246 10^3/uL (134-434); RBC 3.91 M/mm3 (4.00-5.60); RDW 13.3 % (11.9-15.9); WHITE BLOOD COUNT 7.8 K/mm3 (4.0-10.0)
[2023-10-19 09:07] LABS: INR 0.98 (0.83-1.09); PROTHROMBIN TIME (PATIENT) 11.1 SEC (9.7-13.0)
[2023-10-19 09:20] LABS: POTASSIUM 3.4 mmol/L (3.5-5.1)
[2023-10-19 09:22] LABS: ALBUMIN 3.7 g/dl (3.4-5.0); BLOOD UREA NITROGEN 21.5 mg/dL (7-18); CALCIUM 8.9 mg/dL (8.5-10.1)
[2023-10-19 09:25] LABS: CREATININE 1.1 mg/dL (0.55-1.3)
[2023-10-19 09:27] LABS: BILIRUBIN,TOTAL 0.5 mg/dL (0.2-1); TOT PROT 6.1 g/dl (6.4-8.2)
[2023-10-19 09:43] LABS: PH,URINE 5.5 (5.0-8.0); URINE APPEARANCE Clear; URINE BILIRUBIN Negative (NEGATIVE); URINE COLOR Yellow; URINE GLUCOSE (UA) Negative (NEGATIVE); URINE KETONE Negative (NEGATIVE); URINE LEUK ESTERASE Negative (NEGATIVE); URINE NITRITE Negative (NEGATIVE); URINE PROTEIN Negative (NEGATIVE); URINE UROBILINOGEN 0.2 mg/dL (0.2-1.0)
[2023-10-19] MEDS ORDERED: DEXAMETHASONE SOD PHOSPHATE 4 MG/1 ML VIAL IVPUSH ONE (10:13)
[2023-10-19] MEDS ORDERED: DEXAMETHASONE SOD PHOSPHATE 4 MG/1 ML VIAL ONE (10:13)
[2023-10-19 13:17] LABS: EPI CELLS 16 /uL (0-25.1); HYALINE CASTS 0 /uL (0-3.1); URINE BACTERIA 105 /uL (0-1359); URINE RBC 5 /uL (0-23.9); URINE WBC 44 /uL (0-25.8)
== END 2023-10-19 10:24 | disposition home or self-care (01) ==
LOC: JER 07:41
DX: K64.4 Residual hemorrhoidal skin tags (principal); M54.50 Low back pain, unspecified; G89.29 Other chronic pain
CPT/HCPCS: 36415; 73502-TC-RT-FY; 80053; 81003; 82272; 85025; 85610; 86850; 86900; 86901; 87086; 99283-25

== ENCOUNTER 2023-10-29 18:09 | Emergency (ER) | payer OTHER ==
[2023-10-29 18:24] VITALS: BMI 30.7
[2023-10-29] MEDS: KETOROLAC TROMETHAMINE 30 MG/1 ML VIAL IVPUSH ONE (20:05)
[2023-10-29 20:15] LABS: INR 0.84 (0.83-1.09); PROTHROMBIN TIME (PATIENT) 9.7 SEC (9.7-13.0)
[2023-10-29 20:17] LABS: BASO % 1.1 % (0-2.0); HEMATOCRIT 40.3 % (35.4-49); HEMOGLOBIN 14.3 GM/dL (11.7-16.9); LYMPH % 30.2 % (8-40); MCH 34.3 pg (25.7-33.7); MCHC 35.4 g/dl (32.0-35.9); MEAN CELL VOLUME 96.9 fl (80-96); MEAN PLT VOLUME 7.3 fl (7.5-11.1); MONO % 7.4 % (3.8-10.2); NEUT % 59.3 % (42.8-82.8); PLATELET COUNT 225 10^3/uL (134-434); RBC 4.16 M/mm3 (4.00-5.60); RDW 14.2 % (11.9-15.9); WHITE BLOOD COUNT 9.3 K/mm3 (4.0-10.0)
[2023-10-29 20:27] LABS: POTASSIUM 3.4 mmol/L (3.5-5.1)
[2023-10-29 20:29] LABS: CALCIUM 8.6 mg/dL (8.5-10.1)
[2023-10-29 20:30] LABS: ALBUMIN 3.5 g/dl (3.4-5.0); BLOOD UREA NITROGEN 19.9 mg/dL (7-18)
[2023-10-29 20:33] LABS: CREATININE 1.2 mg/dL (0.55-1.3)
[2023-10-29 20:35] LABS: BILIRUBIN,TOTAL 0.4 mg/dL (0.2-1); TOT PROT 5.9 g/dl (6.4-8.2)
[2023-10-29] MEDS ORDERED: LIDOCAINE 5% TOPICAL PATCH ONE (21:20)
[2023-10-29] MEDS ORDERED: GABAPENTIN 400 MG CAPSULE ONE (21:20)
[2023-10-29] MEDS: GABAPENTIN 400 MG CAPSULE PO ONE (21:26)
[2023-10-29] MEDS: LIDOCAINE 4% PATCH TP ONE (21:26)
[2023-10-29] MEDS: LIDOCAINE PATCH REMOVAL MC SCH (22:22)
[2023-10-29] MEDS ORDERED: DEXAMETHASONE 4 MG TABLET (FP) ONE (22:23)
[2023-10-29] MEDS: DEXAMETHASONE 4 MG TABLET (FP) PO ONE (22:25)
[2023-10-29] MEDS ORDERED: MELATONIN 5 MG TABLETS ONE (22:47)
[2023-10-29] MEDS: MELATONIN 5 MG TABLETS PO ONE (22:49)
[2023-10-30 01:34] VITALS: RESP 16
[2023-10-30 06:55] VITALS: TEMP 97.3
[2023-10-30 08:16] VITALS: BP 137/91; PULSE 76
[2023-10-30] MEDS ORDERED: traZODone HCL 50 MG TABLET (FP) PO SCH (22:00)
== END 2023-10-30 09:28 | disposition home or self-care (01) ==
LOC: JERFT 18:09 → JER 18:09
DX: M54.41 Lumbago with sciatica, right side (principal); M54.42 Lumbago with sciatica, left side; G89.29 Other chronic pain; Z20.822 Contact with and (suspected) exposure to COVID-19
CPT/HCPCS: 0241U-QW; 36415; 80053; 85025; 85610; 86850; 86900; 86901; 93005; 93010; 99284-25